=== PATIENT | female | born 1955 | race Caucasian/White ===

== ENCOUNTER 2018-02-18 14:54 | Emergency (ER) | payer BC ==
[2018-02-18 15:09] VITALS: BP 121/63
[2018-02-18] MEDS ORDERED: Rabies VIRUS VACCINE (Imovax)* 2.5 UNIT/ML 1 ML IM ONE (15:28)
[2018-02-18] MEDS ORDERED: Tetan/Diph/Pertus SYR(Tdap)* 0.5 ML SYR(BOOSTRIX) use SYR IM ONE (15:36)
[2018-02-18] MEDS ORDERED: Rabies Immune Globulin 10 ML* 150 UNIT/ML VIAL IM ONE (16:00)
[2018-02-18] MEDS ORDERED: Rabies Immune Globulin 2 ML* 150 UNITS/ML VIAL IM ONE (16:00)
--- NOTE | 2018-02-18 17:07 | UC ---
Skin Complaint HPI - HPI Summary HPI Summary: Patient is a 62-year-old male presenting to the with a concern for better exposure in her home. She was directed to come here for the appropriate medications. She denies any breaks in the skin or known bites. She has never had the rabies vaccination in the past. - History of Current Complaint Chief Complaint: UCGeneralIllness Time Seen by Provider: 02/18/18 14:59 Stated Complaint: BAT EXPOSURE Hx Obtained From: Patient ?: No Onset/Duration: Sudden Onset Current Severity: None Pain Intensity: 1 Pain Scale Used: 0-10 Numeric Aggravating Factor(s): Nothing Alleviating Factor(s): Nothing Associated Signs & Symptoms: Positive: Negative - Allergy/Home Medications Allergies/Adverse Reactions: Allergies Allergy/AdvReac Type Severity Reaction Status Date / Time No Known Allergies Allergy Verified 02/18/18 15:09 Review of Systems Constitutional: Negative Skin: Negative Respiratory: Negative Cardiovascular: Negative Motor: Negative Neurovascular: Negative Neurological: Negative Is Patient Immunocompromised?: No All Other Systems Reviewed And Are Negative: Yes PMH/Surg Hx/FS Hx/Imm Hx Previously Healthy: Yes - Surgical History Surgical History: None - Family History Known Family History: Positive: Cardiac Disease - Social History Occupation: Employed Full-time Lives: With Family Alcohol Use: None Substance Use Type: None Smoking Status (MU): Never Smoked Tobacco Physical Exam Triage Information Reviewed: Yes Appearance: Well-Appearing, No Pain Distress, Well-Nourished Vital Signs: Initial Vital Signs Temp 98.6 F 02/18/18 15:03 Pulse 70 02/18/18 15:03 Resp 18 02/18/18 15:03 BP 121/63 02/18/18 15:03 Pulse Ox 98 02/18/18 15:03 Vital Signs Reviewed: Yes Eye Exam: Normal Neck exam: Normal Neck: Positive: Supple, No Lymphadenopathy Respiratory Exam: Normal Respiratory: Positive: Chest non-tender, Lungs clear Cardiovascular Exam: Normal Cardiovascular: Positive: RRR Musculoskeletal Exam: Normal Musculoskeletal: Positive: Strength Intact Psychological: Positive: Normal Response To Family Skin Exam: Normal Course/Dx - Course Course Of Treatment: During the course of treatment, the patient is given 16.7 mL or 2505 units of HRIG. Also rabies vaccine is given and booster Tdap. Patient tolerated well. She is given instructions for follow-up. - Diagnoses Provider Diagnoses: Rabies exposure Discharge - Sign-Out/Discharge Documenting (check all that apply): Patient Departure - Discharge Plan Condition: Stable Disposition: HOME Patient Education Materials: Rabies Vaccine (By injection) Referrals: Arlette Bradford MD [Primary Care Provider] - - Billing Disposition and Condition Condition: STABLE Disposition: Home
== END 2018-02-18 16:30 | disposition home or self-care (01) ==
LOC: UCEAST 14:54
DX: Z20.3 Contact with and (suspected) exposure to rabies (principal); Z29.14 Encounter for prophylactic rabies immune globulin
CPT/HCPCS: 90375; 90471; 90472; 90715; 96372; 99211; G0463

== ENCOUNTER 2019-08-12 15:38 | Emergency (ER) | payer BC, OTHER ==
--- NOTE | 2019-08-12 16:00 | UC ---
Dental HPI - HPI Summary HPI Summary: 63 yo female presents with dental complaint. She tells me that about 1 year ago she had a dental abscess to her left upper tooth that she saw her dentist for and was placed on PCN with good resolution. It was advised at that time that she get a root canal, but she did not want to do this due to the cost. Over the last 3 days pt has had left upper gum pain and swelling. She believes she has an infection again. Denies fever. - History of Current Complaint Chief Complaint: UCDentalProblem Stated Complaint: DENTAL ISSUE Time Seen by Provider: 08/12/19 16:00 Hx Obtained From: Patient Onset/Duration: Gradual Onset Severity: Mild Pain Intensity: 2 - Allergies/Home Medications Allergies/Adverse Reactions: Allergies Allergy/AdvReac Type Severity Reaction Status Date / Time No Known Allergies Allergy Verified 08/12/19 15:58 Home Medications: Home Medications Aspirin TAB* [Aspirin 325 MG TAB*] 650 mg PO BEDTIME 08/12/19 [History Confirmed 08/12/19] PMH/Surg Hx/FS Hx/Imm Hx Endocrine History: Hypothyroidism - Surgical History Surgical History: None - Family History Known Family History: Positive: Cardiac Disease - Social History Lives: With Family Alcohol Use: Occasionally Substance Use Type: None Smoking Status (MU): Never Smoked Tobacco Review of Systems All Other Systems Reviewed And Are Negative: No Constitutional: Positive: Negative Skin: Positive: Negative Eyes: Positive: Negative ENT: Positive: Dental Pain Respiratory: Positive: Negative Cardiovascular: Positive: Negative Gastrointestinal: Positive: Negative Neurological: Positive: Negative Psychological: Positive: Negative Physical Exam - Summary Physical Exam Summary: GENERAL: NAD. WDWN. No pain distress. SKIN: No rashes, sores, lesions, or open wounds. HEENT: Head: AT/NC Nose: Nasal mucosa pink and moist. NTTP maxillary and frontal sinus. Throat: Posterior oropharynx without exudates, erythema, or tonsillar enlargement. Uvula midline. NECK: Supple. Nontender. No lymphadenopathy. CHEST: No accessory muscle use. Breathing comfortably and in no distress. NEURO: Alert. PSYCH: Age appropriate behavior. Triage Information Reviewed: Yes Vital Signs: Initial Vital Signs Temp 99 F 08/12/19 15:51 Pulse 65 08/12/19 15:51 Resp 18 08/12/19 15:51 Pulse Ox 100 08/12/19 15:51 Vital Signs: Temp Pulse Resp BP Pulse Ox 99 F 65 18 154/82 100 08/12/19 15:51 08/12/19 15:51 08/12/19 15:51 08/12/19 16:14 08/12/19 15:51 Vital Signs Reviewed: Yes Dental: Positive: Percussion Tenderness @ - Tooth #13, Gross Decay/Caries @ - throughout, Dental Fracture @ - Tooth #13, Abscess @ - Tooth #13. Negative: Cellulitis @, Cervical Lymphadenopathy, Bleeding Dental Complaint Course/Dx - Course Course Of Treatment: Tooth #13 abscess - Differential Dx/Diagnosis Provider Diagnosis: Dental abscess Discharge ED - Sign-Out/Discharge Documenting (check all that apply): Patient Departure All imaging exams completed and their final reports reviewed: No Studies - Discharge Plan Condition: Stable Disposition: HOME Prescriptions: Penicillin VK 500 MG TAB(NF) [Penicillin VK 500 mg Tab] 500 mg PO TID 10 Days # 30 tab Patient Education Materials: Dental Abscess (ED) Referrals: Arlette Bradford MD [Primary Care Provider] - Additional Instructions: If you develop a fever, shortness of breath, chest pain, new or worsening symptoms - please call your PCP or go to the ED immediately. - Billing Disposition and Condition Condition: STABLE Disposition: Home
[2019-08-12 16:15] VITALS: BP 154/82
== END 2019-08-12 16:16 | disposition home or self-care (01) ==
LOC: UCEAST 15:38
DX: K04.7 Periapical abscess without sinus (principal); Z79.82 Long term (current) use of aspirin
CPT/HCPCS: 99212; G0463

== ENCOUNTER 2021-03-11 18:58 | Observation (INO) ==
[2021-03-11 20:09] LABS: ABS Basophils 0.1 10^3/ul (0-0.2); ABS Eosinophils 0.1 10^3/ul (0-0.6); ABS Lymphocytes 1.2 10^3/ul (1.0-4.8); ABS Monocytes 0.8 10^3/ul (0-0.8); ABS Neutrophils 11.1 10^3/ul (1.5-7.7); Eosinophil % 0.6 %; Hematocrit 39 % (35-47); Hemoglobin 12.8 g/dL (12.0-16.0); Mean Corpuscular HGB Conc 33 g/dL (31-36); Mean Corpuscular Hemoglobin 30 pg (27-31); Mean Corpuscular Volume 92 fL (80-97); Platelet Count 189 10^3/uL (150-450); Red Blood Count 4.24 10^6 /uL (3.70-4.87); Red Cell Distribution Width 14 % (10-15); White Blood Count 13.3 10^3/uL (3.5-10.8)
[2021-03-11 20:21] LABS: Albumin 4.2 g/dL (3.2-5.2); Calcium 9.7 mg/dL (8.6-10.3); EGFR African American 62.6 (>60); EGFR Non-African American 51.7 (>60); Globulin 4.2 g/dL (2-4); Potassium 3.8 mmol/L (3.5-5.0); Total Bilirubin 0.7 mg/dL (0.2-1.0); Total Protein 8.4 g/dL (6.4-8.9)
[2021-03-11 20:22] LABS: Activated Partial Thrombo Time 30.9 seconds (26.0-38.0); INR 1.26 (0.86-1.15)
[2021-03-11 20:23] LABS: Troponin I 0.01 ng/mL (<0.03)
[2021-03-11] MEDS ORDERED: Iodixanol (CONTRAST) 320 MG/ML 100 ML SDV IV ONE (20:46)
[2021-03-11] MEDS ORDERED: Heparin 5000 UNITS/ML 1 mL VIAL IV SCH (23:00)
[2021-03-11] MEDS ORDERED: Heparin DRIP 25,000 UNITS BAG 25,000 UNITS/500 ML BAG IV SCH (23:00)
[2021-03-12 00:16] LABS: ABS Basophils 0.1 10^3/ul (0-0.2); ABS Eosinophils 0.1 10^3/ul (0-0.6); ABS Lymphocytes 1.7 10^3/ul (1.0-4.8); ABS Monocytes 0.9 10^3/ul (0-0.8); ABS Neutrophils 8.6 10^3/ul (1.5-7.7); Eosinophil % 0.8 %; Hematocrit 36 % (35-47); Hemoglobin 11.8 g/dL (12.0-16.0); Lymphocyte % 14.8 %; Mean Corpuscular HGB Conc 33 g/dL (31-36); Mean Corpuscular Hemoglobin 30 pg (27-31); Mean Corpuscular Volume 91 fL (80-97); Mean Platelet Volume 8.4 fL (7.4-10.4); Platelet Count 160 10^3/uL (150-450); Red Blood Count 3.91 10^6 /uL (3.70-4.87); Red Cell Distribution Width 14 % (10-15); White Blood Count 11.3 10^3/uL (3.5-10.8)
[2021-03-12 00:29] LABS: EGFR African American 79.6 (>60); EGFR Non-African American 65.8 (>60)
[2021-03-12 05:41] LABS: ABS Basophils 0.1 10^3/ul (0-0.2); ABS Eosinophils 0.2 10^3/ul (0-0.6); ABS Lymphocytes 1.4 10^3/ul (1.0-4.8); ABS Monocytes 0.7 10^3/ul (0-0.8); ABS Neutrophils 7.3 10^3/ul (1.5-7.7); Eosinophil % 1.6 %; Hematocrit 35 % (35-47); Lymphocyte % 14.9 %; Mean Corpuscular HGB Conc 34 g/dL (31-36); Mean Corpuscular Hemoglobin 31 pg (27-31); Mean Corpuscular Volume 91 fL (80-97); Mean Platelet Volume 8.5 fL (7.4-10.4); Platelet Count 170 10^3/uL (150-450); Red Blood Count 3.86 10^6 /uL (3.70-4.87); Red Cell Distribution Width 14 % (10-15); White Blood Count 9.6 10^3/uL (3.5-10.8)
[2021-03-12 12:30] LABS: Urine Appearance Cloudy; Urine Bilirubin Negative (Negative); Urine Blood 1+ (Negative); Urine Color Yellow; Urine Glucose Negative (Negative); Urine Ketones Negative (Negative); Urine Nitrite Positive (Negative); Urine Protein Negative (Negative); Urine Specific Gravity 1.008 (1.002-1.030); Urine Urobilinogen Negative (Negative)
[2021-03-12 12:33] LABS: Urine Bacteria 1+ (Absent); Urine Red Blood Cell Trace(0-2/hpf) (Absent); Urine Squamous Epithelial Cell Present (Absent); Urine White Blood Cell 3+(>20/hpf) (Absent)
[2021-03-12 13:54] VITALS: BP 134/73
[2021-03-14 19:51] LABS: Anaplasma phagocytophilum Negative (Negative); B. miyamotoi PCR, B Negative (Negative); Babesia divergens/MO-1 Negative (Negative); Babesia ducani Negative (Negative); Ehrlichia chaffeensis Negative (Negative); Ehrlichia ewingii/canis Negative (Negative); Ehrlichia muris eauclairensis Negative (Negative)
== END 2021-03-12 15:15 | disposition home or self-care (01) ==
LOC: ED 18:58 → INTOOBSV 03-12 02:06 → SUATTDRO 03-12 02:06 → MED 03-12 02:06
PROVIDERS: ADMIT Internal Medicine; ATTEND Internal Medicine

== ENCOUNTER 2021-12-23 06:10 | Observation (INO) ==
[~2021-12-23 06:10] MED LIST: Buffered Lidocaine 1% SYRIN 1 ml INTRADERM ONE; Lactated Ringers 1000 ml BAG 1,000 ML IV SCH
[2021-12-23] MEDS ORDERED: Propofol 10 MG/ML 20 ML BTL ONE (06:36)
[2021-12-23] MEDS ORDERED: Ondansetron 4 mg VIAL 2 MG/ML 2 ml VIAL ONE (06:36)
[2021-12-23] MEDS ORDERED: Midazolam 2 mg/2 ml VIAL 1 mg/ml 2 ml VIAL (2 mg) ONE (06:36)
[2021-12-23] MEDS ORDERED: Dexamethasone IV 4 MG/ML VIAL 1 ml VIAL ONE (06:36)
[2021-12-23] MEDS ORDERED: fentaNYL 100 mcg/2 ml 50 MCG/ML VIAL ONE ×3 (06:36→09:23)
[2021-12-23] MEDS ORDERED: Propofol 0 MG/0 ML BTL ONE (06:36)
[2021-12-23] MEDS ORDERED: Phenylephrine IV 10 MG/ML 1 ml VIAL ONE (06:37)
[2021-12-23] MEDS ORDERED: Lidocaine 2% PF 10 ML AMP ONE (06:40)
[2021-12-23] MEDS ORDERED: Bupivacaine 0.5% PF 10 ML SDV VIAL INJ ONE ×2 (06:48→06:50)
[2021-12-23] MEDS ORDERED: ceFAZolin 2 GM PREMIX 2 GM/50 ML BAG ONE (06:55)
[2021-12-23] MEDS ORDERED: Buffered Lidocaine 1% SYRIN 1 ml INTRADERM ONE (07:17)
[2021-12-23] MEDS ORDERED: Rocuronium 50 mg VIAL 10 mg/ml 5 ml VIAL (50 mg) ONE ×2 (07:51→09:21)
[2021-12-23] MEDS ORDERED: Prochlorperazine 5 mg/ml 2 ml VIAL (10 mg) IV PRN (08:10)
[2021-12-23] MEDS ORDERED: Naloxone 0.4 mg VIAL 0.4 mg/ml 1 ml VIAL IV PRN (08:10)
[2021-12-23] MEDS ORDERED: ROPIVACAINE 5 MG/ML 30 ML BTL (0.5%) ONE (08:16)
[2021-12-23] MEDS ORDERED: HYDROmorphone 0.5 MG/0.5 ML SYRINGE ONE (08:55)
[2021-12-23] MEDS ORDERED: hydrALAZINE 20 mg/ml 1 ML Vial IV ONE (08:58)
[2021-12-23] MEDS ORDERED: Ondansetron 4 mg VIAL 2 MG/ML 2 ml VIAL IV PRN (09:07)
[2021-12-23] MEDS ORDERED: Morphine 2 MG/ML SYRINGE IV PRN (09:07)
[2021-12-23] MEDS ORDERED: Ondansetron ODT 4 mg TAB 4 MG TAB PO PRN (09:07)
[2021-12-23] MEDS ORDERED: Lactulose 30 ml UDC PO PRN (09:07)
[2021-12-23] MEDS ORDERED: Magnesium Hydroxide LIQ 30 ML UDC PO PRN (09:07)
[2021-12-23] MEDS ORDERED: Lactated Ringers 1000 ml BAG 1,000 ML IV SCH (10:00)
[2021-12-23] MEDS ORDERED: HYDROmorphone 1 MG/1 ML SYRINGE ONE (11:30)
[2021-12-23] MEDS: HYDROmorphone 1 MG/1 ML SYRINGE IV PRN ×5 (11:35→11:55)
[2021-12-23] MEDS: ceFAZolin 1 GM ADVAN 1 GM in NS 0.9% 50 ML 50 ML IVPB SCH (15:26)
[2021-12-23] MEDS: Magnesium Hydroxide LIQ 30 ML UDC PO SCH (20:50)
[2021-12-24] MEDS: ceFAZolin 1 GM ADVAN 1 GM in NS 0.9% 50 ML 50 ML IVPB SCH ×2 (00:43→07:32)
[2021-12-24 06:25] LABS: Hematocrit 29 % (35-47); Hemoglobin 9.6 g/dL (12.0-16.0); Mean Platelet Volume 8.2 fL (7.4-10.4); Platelet Count 153 10^3/uL (150-450)
[2021-12-24 06:40] LABS: Calcium 9.3 mg/dL (8.6-10.3); Potassium 4.7 mmol/L (3.5-5.0); eGFR CKD-EPI 82.7 (>60)
[2021-12-24] MEDS: Vitamin THERAPEUTIC TAB PO SCH (09:02)
[2021-12-24] MEDS: Magnesium Hydroxide LIQ 30 ML UDC PO SCH ×2 (09:03→22:08)
[2021-12-25 06:17] LABS: Hematocrit 28 % (35-47); Hemoglobin 9.1 g/dL (12.0-16.0); Mean Platelet Volume 7.8 fL (7.4-10.4); Platelet Count 129 10^3/uL (150-450)
[2021-12-25] MEDS: Magnesium Hydroxide LIQ 30 ML UDC PO SCH (09:12)
[2021-12-25] MEDS: Vitamin THERAPEUTIC TAB PO SCH (09:40)
[2021-12-26 05:53] LABS: Hematocrit 27 % (35-47); Hemoglobin 8.8 g/dL (12.0-16.0); Platelet Count 142 10^3/uL (150-450)
[2021-12-26] MEDS: Vitamin THERAPEUTIC TAB PO SCH (09:04)
[2021-12-26 16:07] VITALS: BP 103/61
== END 2021-12-26 18:02 | disposition home or self-care (01) ==
LOC: OR 06:10 → SSU 06:10
PROVIDERS: ADMIT Orthopaedic Surgery Adult Reconstructive Orthopaedic Surgery; ATTEND Orthopaedic Surgery Adult Reconstructive Orthopaedic Surgery

== ENCOUNTER 2022-07-14 16:52 | Inpatient (IN) ==
[2022-07-14 21:19] LABS: ABS Basophils 0.1 10^3/ul (0-0.2); ABS Eosinophils 0.3 10^3/ul (0-0.6); ABS Lymphocytes 1.9 10^3/ul (1.0-4.8); ABS Monocytes 0.5 10^3/ul (0-0.8); ABS Neutrophils 3.1 10^3/ul (1.5-7.7); Eosinophil % 4.4 %; Hematocrit 37 % (35-47); Hemoglobin 12.6 g/dL (12.0-16.0); Lymphocyte % 31.6 %; Mean Corpuscular HGB Conc 34 g/dL (31-36); Mean Corpuscular Hemoglobin 30 pg (27-31); Mean Corpuscular Volume 88 fL (80-97); Mean Platelet Volume 7.9 fL (7.4-10.4); Nucleated Red Blood Cells % 0.1; Platelet Count 193 10^3/uL (150-450); Red Blood Count 4.23 10^6 /uL (3.70-4.87); Red Cell Distribution Width 15 % (10-15); White Blood Count 5.9 10^3/uL (3.5-10.8)
[2022-07-14 21:44] LABS: ALT 11 U/L (7-52); AST 14 U/L (13-39); Acetaminophen < 15 mcg/mL; Albumin/Globulin Ratio 1.2 (1-3); Alcohol, S < 13 mg/dL (<13); Alkaline Phosphatase 82 U/L (35-149); Anion Gap 6 mmol/L (2-11); Blood Urea Nitrogen 14 mg/dL (6-24); C Reactive Protein 7.24 mg/L (<8.01); CO2 Carbon Dioxide 26 mmol/L (22-32); Calcium 9.6 mg/dL (8.6-10.3); Chloride 105 mmol/L (101-111); Globulin 3.3 g/dL (2-4); Glucose 94 mg/dL (70-100); Potassium 3.9 mmol/L (3.5-5.0); Salicylate < 2.50 mg/dL (<30); Sodium 137 mmol/L (135-145); Total Protein 7.3 g/dL (6.4-8.9)
[2022-07-14 21:59] LABS: TSH Ultra Thyroid Stim Horm 1.21 mcIU/mL (0.34-5.60)
[2022-07-14 22:01] LABS: Free T4 1.57 ng/dL (0.61-1.12)
[2022-07-15 00:43] LABS: Urine Benzodiazepine Screen None Detected (None Detect); Urine Cannabinoids Screen None Detected (None Detect); Urine Opiates Screen None Detected (None Detect)
[2022-07-15 01:07] LABS: Urine Appearance Cloudy; Urine Bilirubin Negative (Negative); Urine Blood Negative (Negative); Urine Color Yellow; Urine Glucose Negative (Negative); Urine Ketones Trace (Negative); Urine Nitrite Negative (Negative); Urine Protein Negative (Negative); Urine Specific Gravity 1.025 (1.002-1.030); Urine Urobilinogen Negative (Negative)
[2022-07-15 02:41] LABS: Vitamin B12 400 pg/mL (180-914)
[2022-07-15] MEDS ORDERED: Al Hydrox/Mg Hydrox/Simet LIQ 30 ML UDC PO PRN (17:46)
[2022-07-16 09:16] LABS: HDL Cholesterol 41.7 mg/dL
[2022-07-17 18:58] LABS: Anaplasma phagocytophilum Negative (Negative); B. miyamotoi PCR, B Negative (Negative); Babesia divergens/MO-1 Negative (Negative); Babesia ducani Negative (Negative); Ehrlichia chaffeensis Negative (Negative); Ehrlichia ewingii/canis Negative (Negative); Ehrlichia muris eauclairensis Negative (Negative)
[2022-07-17 21:20] LABS: Arsenic <1 ng/mL (<13); Cadmium <0.2 ng/mL (<5.0); Mercury <1 ng/mL (<10); Venous/Capillary Heavy Metals Venous
[2022-07-27 09:04] VITALS: BP 140/82
== END 2022-07-27 14:42 | disposition home or self-care (01) | DRG 885 ==
LOC: ED 16:52 → EDHOLD 07-15 17:46 → BSU 07-15 21:10
PROVIDERS: ADMIT Psychiatry & Neurology Psychiatry; ATTEND Psychiatry & Neurology Psychiatry